=== PATIENT | female | born 1930 | race Caucasian/White ===

== ENCOUNTER 2016-06-18 13:28 | Emergency (ER) | payer OTHER ==
[~2016-06-18 13:28] MED LIST: ASACOL HD800 MG PO; ASPIRIN EC81 MG PO; BUMETANIDE2 MG PO; CERTAGEN1 EACH PO; CETIRIZINE HCL10 MG PO; CLARITIN10 MG PO; DEPAKOTE SPRIN125 M2 PO; DOCUSATE SODIU250 MG PO; FEOSOL325 MG PO; GLIPIZIDE XL2.5 MG PO; K-DUR20 MEQ PO; LOPRESSOR50 MG PO; NORVASC 5MG TABL5 MG PO; PRILOSEC20 MG PO; PRILOSEC40 MG PO; SEROQUEL 50MG T50 MG PO; TYLENOL; ZOCOR10 MG PO; ZOLOFT100 MG PO; [UNRECOGNIZED DRUG - CODE] PO
[2016-06-18 14:22] LABS: BILIRUBIN NEGATIVE (NEGATIVE); BLOOD NEGATIVE Ery/uL (NEGATIVE); CLARITY CLEAR (CLEAR); COLOR YELLOW (YELLOW); GLUCOSE (U) NORMAL (NORMAL); KETONE (U) NEGATIVE (NEGATIVE); LEUKOCYTES 2+ Leu/uL (NEGATIVE); NITRITE NEGATIVE (NEGATIVE); PROTEIN NEGATIVE (NEGATIVE); UROBILINOGEN 0.2 mg/dL (0.2-1.0); pH 5.5 (5.0-9.0)
[2016-06-18 14:29] LABS: BACTERIA 2+
[2016-06-18 15:06] LABS: BASOPHIL 0.1 % (0-2); EOSINOPHIL 0.1 % (0-7); HCT 29.1 % (37.0-47.0); HGB 9.3 g/dl (12.5-16.0); LYMPHOCYTE 5.2 % (15-48); MCH 28.9 pg (25.0-31.0); MCV 90.4 fL (78.0-100.0); MONOCYTE 5.6 % (0-12); MPV 9.4 fL (6.0-9.5); PLT 319 K/uL (150-400); RBC 3.22 M/uL (4.20-5.40); RDW 13.5 % (11.5-14.0); RETICULOCYTE COUNT 1.5 % (1.0-2.0); WBC 10.4 K/uL (4.0-10.5)
[2016-06-18 15:18] LABS: INR 1.36 (0.9-1.2); PROTHROMBIN TIME 16.3 SECONDS (11.7-14.0); PTT 27.2 SECONDS (23.2-31.4)
[2016-06-18 15:19] LABS: D-DIMER 2.82 ug/mLFEU (0.00-0.41)
[2016-06-18 16:53] LABS: ALBUMIN 3.5 g/dL (3.4-4.8); BILIRUBIN - TOTAL 0.2 mg/dL (0.1-1.0); CREATININE 1.9 mg/dL (0.5-1.0); POTASSIUM 4.6 mmol/L (3.5-5.1); TOTAL PROTEIN 6.5 g/dL (6.4-8.3)
[2016-06-18 18:52] LABS: IRON 68 ug/dL (44-196); IRON % SATURATION 34 %SAT (20-50); TIBC (TOTAL IRON + UIBC) 199 U/L (228-428); UIBC 131 ug/dL (112-346)
== END 2016-06-18 21:03 | disposition home or self-care (01) ==
LOC: FER 13:28
PROVIDERS: Internal Medicine
DX: I11.9 Hypertensive heart disease without heart failure (principal); E11.9 Type 2 diabetes mellitus without complications; K21.9 Gastro-esophageal reflux disease without esophagitis; E78.5 Hyperlipidemia, unspecified; Z88.0 Allergy status to penicillin
CPT/HCPCS: 36415; 71020; 80053; 81001; 82728; 83540; 83550; 84484; 85025; 85044; 85379; 85610; 85730; 93005; 93970

== ENCOUNTER 2016-08-27 10:32 | Emergency (ER) | payer OTHER ==
[2016-08-27 11:38] LABS: BASOPHIL 0 % (0-2); EOSINOPHIL 0 % (0-7); HCT 30.1 % (37.0-47.0); HGB 9.9 g/dl (12.5-16.0); LYMPHOCYTE 5.3 % (15-48); MCH 27.7 pg (25.0-31.0); MCHC 32.9 g/dL (32.0-36.0); MCV 84.1 fL (78.0-100.0); MONOCYTE 6.7 % (0-12); MPV 10.6 fL (6.0-9.5); PLT 179 K/uL (150-400); RBC 3.58 M/uL (4.20-5.40); RDW 14.3 % (11.5-14.0); WBC 7.5 K/uL (4.0-10.5)
[2016-08-27 12:03] LABS: ALBUMIN 3.4 g/dL (3.4-4.8); BILIRUBIN - TOTAL 0.2 mg/dL (0.1-1.0); CREATININE 1.6 mg/dL (0.5-1.0); GLOBULIN (CALCULATION) 2.9 g/dL (2.2-4.2); POTASSIUM 4.2 mmol/L (3.5-5.1); TOTAL PROTEIN 6.3 g/dL (6.4-8.3)
[2016-08-27 12:45] LABS: BILIRUBIN NEGATIVE (NEGATIVE); BLOOD TRACE-LYSED Ery/uL (NEGATIVE); CLARITY CLEAR (CLEAR); COLOR YELLOW (YELLOW); GLUCOSE (U) NORMAL (NORMAL); KETONE (U) NEGATIVE (NEGATIVE); LEUKOCYTES TRACE Leu/uL (NEGATIVE); NITRITE NEGATIVE (NEGATIVE); PROTEIN TRACE (LOW) mg/dL (NEGATIVE); UROBILINOGEN 0.2 mg/dL (0.2-1.0)
[2016-08-27 12:53] LABS: BACTERIA 3+; URINARY WBC 20-50
== END 2016-08-27 14:22 | disposition home or self-care (01) ==
LOC: FER 10:32
PROVIDERS: Internal Medicine
DX: E11.649 Type 2 diabetes mellitus with hypoglycemia without coma (principal); N39.0 Urinary tract infection, site not specified; M62.3 Immobility syndrome (paraplegic); I10 Essential (primary) hypertension; F03.90 Unspecified dementia, unspecified severity, without behavioral disturbance, psychotic disturbance, mood disturbance, and anxiety; E78.5 Hyperlipidemia, unspecified; Z88.0 Allergy status to penicillin; Z79.84 Long term (current) use of oral hypoglycemic drugs; Z79.82 Long term (current) use of aspirin; Z79.899 Other long term (current) drug therapy
CPT/HCPCS: 36415; 71010; 73564; 73590; 80053; 81001; 83036; 84484; 85025; 87076; 87088; 87186; 93005